=== PATIENT | female | born 1990 | race African-American/Black ===

== ENCOUNTER 2018-01-14 10:16 | Emergency (ER) | payer SELFPAY, OTHER | END 2018-01-14 11:45 | disposition home or self-care (01) | LOC: ER 10:16 | DX: S60.042A Contusion of left ring finger without damage to nail, initial encounter (principal); W20.8XXA Other cause of strike by thrown, projected or falling object, initial encounter; Y93.89 Activity, other specified; Y92.89 Other specified places as the place of occurrence of the external cause; Y99.8 Other external cause status | CPT/HCPCS: 73130; 99284 ==